=== PATIENT | female | born 1950 | race African-American/Black ===

== ENCOUNTER 2017-05-18 10:09 | Emergency (ER) | payer MEDICARE ==
--- NOTE | 2017-05-18 10:47 | ERNOTE ---
ER Female HPI Date of Service: 05/18/17 Stated Complaint: DIARHEA,BLEEDING, UTI POSSIBLY Time Seen by Provider: 05/18/17 10:25 Source: patient Exam Limitations: no limitations Immunizations: IMMUNIZATION HX Immunizations Up to Date Yes History of Influenza Vaccine Yes Hx Pneumococcal Vaccination Yes Allergies/Adverse Reactions: Allergies aluminum Allergy (Mild, Verified 05/18/17 10:37) ALUMINUM CARBONATE = HIVES brompheniramine Allergy (Mild, Verified 05/18/17 10:37) Hives dextromethorphan Allergy (Mild, Verified 05/18/17 10:37) Hives Latex, Natural Rubber Allergy (Mild, Verified 05/18/17 10:37) Hives phenylephrine Allergy (Mild, Verified 05/18/17 10:37) Hives phenylpropanolamine Allergy (Mild, Verified 05/18/17 10:37) Hives silver [Silver] Allergy (Verified 05/18/17 10:37) atropine Adverse Reaction (Mild, Verified 05/18/17 10:37) RASH petrolatum,white [From Vaseline] Adverse Reaction (Mild, Verified 05/18/17 10:37 ) REDNESS OF SKIN sodium chloride for inhalation [From Saline] Adverse Reaction (Mild, Verified 10:37) EYE DROPS REDNESS AND SWELLING bleach Allergy (Uncoded 05/18/17 10:37) Home Medications: HOME MEDICATIONS Baclofen 10 mg PO TID 07/09/15 [Last Taken Unknown] Diazepam [Valium] 2 mg PO HS 07/09/15 [Last Taken Unknown] Simvastatin [Zocor] 10 mg PO HS 07/09/15 [Last Taken Unknown] metFORMIN HCL [Glucophage] 850 mg PO BID 12/11/15 [Last Taken Unknown] Topiramate [Topamax] 75 mg PO HS 12/14/15 [Last Taken Unknown] Acetaminophen [Tylenol] 325 mg PO QID PRN 05/11/16 [Last Taken Unknown] Pregabalin [Lyrica] 100 mg PO BID 05/11/16 [Last Taken Unknown] Omeprazole 40 mg PO DAILY 09/26/16 [Last Taken Unknown] Multivit,Calc,Mins/Iron/Folic [Women's Daily Formula Caplet] 1 each PO DAILY 04/01 [Last Taken Unknown] Methenamine Mandelate 1 gm PO BID 10/29/16 [Last Taken Unknown] Polyvinyl Alcohol [Artificial Tears] 1 drop OP QID 10/29/16 [Last Taken Unknown] Bupropion HCl 75 mg PO DAILY 10/30/16 [Last Taken Unknown] Calcium Polycarbophil [Fibercon] 625 mg PO TID #60 tablet 11/01/16 [Last Taken Unknown] Metoprolol Succinate [Toprol Xl] 50 mg PO HS #30 tablet.sa 11/01/16 [Last Taken Unknown] Quinapril HCl [Accupril] 10 mg PO DAILY #30 tablet 11/01/16 [Last Taken Unknown] Docusate Sodium [Colace] 100 mg PO BID 05/18/17 [Last Taken Unknown] Hydrochlorothiazide [Hydrodiuril] 25 mg PO DAILY 05/18/17 [Last Taken Unknown] Loratadine [Allergy Relief] 10 mg PO DAILY 05/18/17 [Last Taken Unknown] Sennosides 8.6 mg PO BID 05/18/17 [Last Taken Unknown] traMADol HCL [Ultram] 50 mg PO PRN 05/18/17 [Last Taken Unknown] - History of Present Illness Narrative: Pt. comes in with c/o abd pain, nausea, vomiting, diarrhea, and rectal bleeding for a week. Pt. states that symptoms are intermittent and the bleeding is bright red in nature. Pt. had a reanastamosis of a colostomy three months ago and has been on laxatives since. Pt. states taht she stopped the laxatives due to the diarrhea and took immodium but it only made the pain worse and turned her stolls into a thick liquid instead of thin liquid with chunks. Review of Systems - Review of Systems Constitutional: Present: weakness, fatigue EYE: Present: no symptoms reported ENT: Present: no symptoms reported. Absent: nose congestion, nasal drainage Respiratory: Present: no symptoms reported. Absent: shortness of breath, cough , wheezing Cardiology: Present: no symptoms reported. Absent: chest pain, palpitations, edema Gastrointestinal/Abdominal: Present: nausea, vomiting, diarrhea, abdominal pain , eating less, drinking less. Absent: constipation Genitourinary: Present: frequency, dysuria Musculoskeletal: Present: no symptoms reported. Absent: back pain, joint pain Skin: Present: no symptoms reported Neurological: Present: no symptoms reported. Absent: headache, dizziness/light- headedness, numbness, tingling All Other Systems: All systems neg except as marked - Patient's Past Medical History Patient History - Medical: Anemia, Cataracts, Chronic Pain, Diabetes Type 2, Glaucoma, Headache, Migraines, Osteoarthritis, Renal Failure, UTI'S Patient History - Cardiac/Respiratory: Hypertension Patient History - Cancer: No Hx of Cancer Patient History - Surgical Procedures: Appendectomy, Cataracts, Colon Resection , Tubal Ligation, T & A Patient History - Other: None - Family History Mother Family History - Medical: Family History - Cardiac/Respiratory: Myocardial Infarction Father Family History - Medical: Family History - Cardiac/Respiratory: Myocardial Infarction Brother Family History - Medical: - Social History Living Situations: spouse Abuse History: No History of abuse Psych History: No pertinent hx Does anyone smoke in the home?: No Smoking Status: Never smoker Alcohol Use: none Drug Use: none - Immunizations Immunizations Up to Date: Yes Hx Pneumococcal Vaccination: Yes History of Influenza Vaccine: Yes Physical Exam - Physical Exam General Appearance: Present: wd/wn, alert, no apparent distress Eye Exam: Normal inspection: bilateral, PERRL: bilateral, EOMI: bilateral Ears, Nose, Throat: Present: normal ENT inspection, normal pharynx Neck: Present: normal inspection, nontender. Absent: lymphadenopathy (R), lymphadenopathy (L) Respiratory: Present: no respiratory distress, normal breath sounds, no accessory muscle use, chest nontender, lungs clear Cardiovascular/Chest: Present: regular rate, rhythm, no murmur, normal peripheral pulses Gastrointestinal/Abdominal: Present: nondistended, soft, no organomegaly, tenderness - diffuse, abnormal bowel sounds - hyper tympanic upper quiet rare LLQ. Absent: McBurney sign, Obturator sign, Velazquez sign, Psoas sign Back Exam: Present: normal inspection, normal range of motion, no CVA tenderness , no vertebral tenderness Extremity Exam: Present: normal inspection, non-tender, normal range of motion, no edema Neurological Exam: Present: alert, oriented, normal mood/affect, no motor/ sensory deficits Skin Exam: Present: warm/dry, pallor. Absent: skin rash ED Progress - Date and Time Seen: Date and Time: 05/18/17 13:[address] Bergeron and Dr Velazquez at [facility] GI and general surgery and as pt. has had recent reanastamosis of ileal conduit and we are unable to rule out ischemia at this time they would like her transfered up to [facility] and admitted to medicine for urgent colonoscopy. - Results and Orders Patient's Lab Results:: I have reviewed the patient's lab results. - Vital Signs Patient's Vital Signs:: I have reviewed the patient's vital signs. Vital Signs: Vital Signs 05/18/17 10:26 Temperature 37.2 C Pulse Rate 81 Respiratory 16 Rate Blood Pressure 132/76 O2 Sat by Pulse 99 Oximetry - X-Ray X-Ray #1 X-Ray: abdomen Interpretation: Reviewed by me X-ray Comments: mild air fluid levels, nonobstructive gas pattern. - Progress/Reassessment Chief Complaint: Urinary Tract Problems Departure Clinical Impression: Diarrhea Qualifiers: Diarrhea type: unspecified type Qualified Code(s): R19.7 - Diarrhea, unspecified Nausea & vomiting Qualifiers: Vomiting type: unspecified Vomiting Intractability: non-intractable Qualified Code(s): R11.2 - Nausea with vomiting, unspecified GI bleeding Qualifiers: GI bleed type/associated pathology: unspecified gastrointestinal hemorrhage type Qualified Code(s): K92.2 - Gastrointestinal hemorrhage, unspecified - Departure Disposition: [facility] Condition: Fair
[2017-05-18 11:15] LABS: Hematocrit 33.1 % (37.0-47.0); Hemoglobin 10.5 gm/dL (12.5-16.0); Mean Cell Volume 89.7 fl (78-100); Mean Corpuscular Hemoglobin 28.5 pg (27-31); Mean Corpuscular Hgb Conc 31.7 g/dl (32-36); Mean Platelet Volume 9.1 fl (6.0-9.5); Neutrophil # 4.6 K/mm3 (1.3-6.0); Neutrophil % 50.2 % (42-75.0); Platelet Count 364 K/mm3 (150-450); Red Blood Count 3.69 M/mm3 (4.2-5.4); Red Cell Distribution Width 12.5 % (11.5-14.0); White Blood Count 9.2 K/mm3 (4.0-10.5)
[2017-05-18 11:28] LABS: Albumin * 3.1 gm/dl (3.4-5.0); Anion Gap 9.7 mmol/L (6.8-13.8); BUN/Creatinine Ratio 14.8 (9.0-21.6); Bilirubin, Total 0.2 mg/dL (0.0-1.1); Ca. Corrected For Albumin 9.3 mg/dL (8.4-10.2); Calcium * 8.9 mg/dL (7.9-10.9); Carbon Dioxide 31.6 mmol/L (24-32.6); Potassium 3.3 mmol/L (3.4-4.6); Total Protein 7.4 gm/dL (6.2-8.2)
[2017-05-18 11:38] LABS: Urine Appearance Slightly Cloudy; Urine Color Yellow
[2017-05-18 11:39] LABS: Urine Bacteria 3+; Urine Bilirubin Negative (NEGATIVE); Urine Blood Negative /ul (NEGATIVE); Urine Ketone Negative (NEGATIVE); Urine Nitrite Negative (NEGATIVE); Urine Protein Negative (NEGATIVE); Urine RBC None Seen /hpf (0-5); Urine Specific Gravity 1.015 SP.GR. (1.005-1.010); Urine Urobilinogen Normal (NORMAL)
[2017-05-18 14:03] VITALS: BP 156/73
[2017-05-18] MEDS ORDERED: NORMAL SALINE 1,000 ML IV PRN (14:07)
== END 2017-05-18 14:15 | disposition short-term general hospital (02) ==
LOC: ER 10:09
DX: R19.7 Diarrhea, unspecified (principal); R11.2 Nausea with vomiting, unspecified; K92.2 Gastrointestinal hemorrhage, unspecified; D64.9 Anemia, unspecified; G89.29 Other chronic pain; E11.9 Type 2 diabetes mellitus without complications; M19.90 Unspecified osteoarthritis, unspecified site; N19 Unspecified kidney failure; Z87.440 Personal history of urinary (tract) infections; I10 Essential (primary) hypertension

== ENCOUNTER 2017-07-05 17:05 | Emergency (ER) | payer MEDICARE ==
--- NOTE | 2017-07-05 18:14 | ERNOTE ---
Integumentary HPI - Narrative Date of Service: 07/05/17 - General Presenting Symptoms: other Time Seen by Provider: 07/05/17 17:21 Source: patient Exam Limitations: no limitations - Immun/Allergies/Home Medications Immunizations: IMMUNIZATION HX Immunizations Up to Date Yes History of Influenza Vaccine Yes Hx Pneumococcal Vaccination Yes Allergies/Adverse Reactions: Allergies Allergy/AdvReac Type Severity Reaction Status Date / Time aluminum Allergy Mild ALUMINUM Verified 07/05/17 17:13 CARBONATE = HIVES brompheniramine Allergy Mild Hives Verified 07/05/17 17:13 dextromethorphan Allergy Mild Hives Verified 07/05/17 17:13 Latex, Natural Rubber Allergy Mild Hives Verified 07/05/17 17:13 phenylephrine Allergy Mild Hives Verified 07/05/17 17:13 phenylpropanolamine Allergy Mild Hives Verified 07/05/17 17:13 silver [Silver] Allergy Verified 07/05/17 17:13 atropine AdvReac Mild RASH Verified 07/05/17 17:13 petrolatum,white AdvReac Mild REDNESS OF Verified 07/05/17 17:13 [From Vaseline] SKIN sodium chloride for AdvReac Mild EYE DROPS Verified 07/05/17 17:13 inhalation REDNESS [From Saline] AND SWELLING bleach Allergy Uncoded 07/05/17 17:13 Home Medications: HOME MEDICATIONS Baclofen 10 mg PO TID 07/09/15 [Last Taken Unknown] Diazepam [Valium] 2 mg PO HS 07/09/15 [Last Taken Unknown] Simvastatin [Zocor] 10 mg PO HS 07/09/15 [Last Taken Unknown] metFORMIN HCL [Glucophage] 850 mg PO BID 12/11/15 [Last Taken Unknown] Topiramate [Topamax] 75 mg PO HS 12/14/15 [Last Taken Unknown] Acetaminophen [Tylenol] 325 mg PO QID PRN 05/11/16 [Last Taken Unknown] Pregabalin [Lyrica] 100 mg PO BID 05/11/16 [Last Taken Unknown] Omeprazole 40 mg PO DAILY 09/26/16 [Last Taken Unknown] Multivit,Calc,Mins/Iron/Folic [Women's Daily Formula Caplet] 1 each PO DAILY 04/01 [Last Taken Unknown] Methenamine Mandelate 1 gm PO BID 10/29/16 [Last Taken Unknown] Polyvinyl Alcohol [Artificial Tears] 1 drop OP QID 10/29/16 [Last Taken Unknown] Bupropion HCl 75 mg PO DAILY 10/30/16 [Last Taken Unknown] Calcium Polycarbophil [Fibercon] 625 mg PO TID #60 tablet 11/01/16 [Last Taken Unknown] Metoprolol Succinate [Toprol Xl] 50 mg PO HS #30 tablet.sa 11/01/16 [Last Taken Unknown] Quinapril HCl [Accupril] 10 mg PO DAILY #30 tablet 11/01/16 [Last Taken Unknown] Docusate Sodium [Colace] 100 mg PO BID 05/18/17 [Last Taken Unknown] Hydrochlorothiazide [Hydrodiuril] 25 mg PO DAILY 05/18/17 [Last Taken Unknown] Loratadine [Allergy Relief] 10 mg PO DAILY 05/18/17 [Last Taken Unknown] Sennosides 8.6 mg PO BID 05/18/17 [Last Taken Unknown] traMADol HCL [Ultram] 50 mg PO PRN 05/18/17 [Last Taken Unknown] - History of Present Illness Narrative: Patient presents to the ED with drainage and food particulate from an abdominal wound. She had an IR drainage nearly one month ago. Had a drain that has been removed. She has noticed increased drainage and foot matter coming from the site. No fever. Minimal discomfort here. no vomiting. Some diarrhea with this. nothing makes this better or worse. Constant. Location: Reports: other - abdomen Severity: mild Modifying Factors - (Improves): Reports: other - nothing Modifying Factors - (Worsens): Reports: nothing Associated Symptoms: Denies: rash, fever Prior Treatment: Reports: recently seen Review of Systems - Review of Systems Constitutional: Absent: fever Respiratory: Absent: shortness of breath Cardiology: Absent: chest pain Gastrointestinal/Abdominal: Present: See HPI Genitourinary: Present: no symptoms reported All Other Systems: All systems neg except as marked - Patient's Past Medical History Patient History - Medical: Anemia, Cataracts, Chronic Pain, Diabetes Type 2, Glaucoma, Headache, Migraines, Osteoarthritis, Renal Failure, UTI'S Patient History - Cardiac/Respiratory: Hypertension Patient History - Cancer: No Hx of Cancer Patient History - Surgical Procedures: Appendectomy, Cataracts, Colon Resection , Tubal Ligation, T & A Patient History - Other: None - Family History Mother Family History - Medical: Family History - Cardiac/Respiratory: Myocardial Infarction Father Family History - Medical: Family History - Cardiac/Respiratory: Myocardial Infarction Brother Family History - Medical: - Social History Living Situations: home Abuse History: No History of abuse Psych History: No pertinent hx Does anyone smoke in the home?: No Alcohol Use: none Drug Use: none - Immunizations Immunizations Up to Date: Yes Hx Pneumococcal Vaccination: Yes History of Influenza Vaccine: Yes Physical Exam - Physical Exam General Appearance: Present: alert, no apparent distress Head Exam: Present: normal inspection Eye Exam: Normal inspection: bilateral, PERRL: bilateral Ears, Nose, Throat: Present: normal ENT inspection Neck: Present: normal inspection Respiratory: Present: no respiratory distress, normal breath sounds, lungs clear Cardiovascular/Chest: Present: regular rate, rhythm Gastrointestinal/Abdominal: Present: normal bowel sounds, nontender, soft, other - there is a left wound with significant drainage left abd wall. no underlying abscess. This is foul smelling and brown. Back Exam: Absent: CVA tenderness (R), CVA tenderness (L) Extremity Exam: Present: normal inspection Neurological Exam: Present: alert, normal mood/affect Skin Exam: Present: normal color, warm/dry, other - mild erythema surrounding open wound ED Progress - Results and Orders Patient's Lab Results:: I have reviewed the patient's lab results. - Vital Signs Patient's Vital Signs:: I have reviewed the patient's vital signs. Vital Signs: Vital Signs 07/05/17 17:09 Temperature 37.0 C Pulse Rate 78 Respiratory 12 Rate Blood Pressure 103/55 O2 Sat by Pulse 97 Oximetry - Progress/Reassessment Chief Complaint: Abscess Progress Note-Subjective: 07/05/17 18:[address] Hudson who recommends I speak to [facility]. I spoke with IR at [facility] who recommends transfer to [facility] for further eval. i spoke with Dr Miller who accepts transfer to [facility]. Patient and agreeable. 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 relates food particulate from the wound. Medically stable for transfer Departure Clinical Impression: Wound drainage - Departure Disposition: [facility] Condition: Stable Referrals: Leland Shields MD [Primary Care Provider] -
[2017-07-05 18:19] LABS: Hematocrit 30.6 % (37.0-47.0); Hemoglobin 9.7 gm/dL (12.5-16.0); Mean Cell Volume 89.2 fl (78-100); Mean Corpuscular Hemoglobin 28.3 pg (27-31); Mean Corpuscular Hgb Conc 31.7 g/dl (32-36); Mean Platelet Volume 8.8 fl (6.0-9.5); Neutrophil # 5.6 K/mm3 (1.3-6.0); Platelet Count 514 K/mm3 (150-450); Red Blood Count 3.43 M/mm3 (4.2-5.4); White Blood Count 11.6 K/mm3 (4.0-10.5)
[2017-07-05 18:31] LABS: BUN/Creatinine Ratio 16.1 (9.0-21.6); Bilirubin, Total 0.1 mg/dL (0.0-1.1); Ca. Corrected For Albumin 9.5 mg/dL (8.4-10.2); Carbon Dioxide 28.6 mmol/L (24-32.6); Potassium 3.6 mmol/L (3.4-4.6); Total Protein 7.5 gm/dL (6.2-8.2)
[2017-07-05 21:13] VITALS: BP 103/55
== END 2017-07-05 18:35 | disposition short-term general hospital (02) ==
LOC: ER 17:05
DX: S31.109A Unspecified open wound of abdominal wall, unspecified quadrant without penetration into peritoneal cavity, initial encounter (principal); T81.9XXA Unspecified complication of procedure, initial encounter; Z87.440 Personal history of urinary (tract) infections; E11.9 Type 2 diabetes mellitus without complications; I10 Essential (primary) hypertension; G89.29 Other chronic pain